=== PATIENT | male | born 1960 | race Caucasian/White ===

== ENCOUNTER → 2016-06-30 | Outpatient (REF) | payer OTHER ==
[2016-06-30 11:31] LABS: BASO % 0.9 % (0.0-1.0); EOS # 0.2 K/mm3 (0.0-0.50); EOS % 2.6 % (0.0-3.0); LARGE UNSTAINED CELL # 0.2 K/mm3 (0.0-0.4); LARGE UNSTAINED CELL % 3.1 % (0.0-4.0); LYMPH # 1.6 K/mm3 (1.5-4.5); LYMPH % 27.1 % (24.0-44.0); MEAN CORPUSCULAR HEMOGLOBIN 32.6 pg (27.0-33.0); MEAN CORPUSCULAR HGB CONC 34.6 g/dl (32.0-36.5); MEAN CORPUSCULAR VOLUME 94.2 fl (80.0-96.0); MONO # 0.5 K/mm3 (0.0-0.8); MONO % 8.7 % (0.0-5.0); NEUTROPHILS # 3.4 K/mm3 (1.8-7.7); NEUTROPHILS % 57.6 % (36.0-66.0); PLATELET COUNT, AUTOMATED 225 k/mm3 (150-450); RED CELL DISTRIBUTION WIDTH 13.1 % (11.5-14.5)
[2016-06-30 11:54] LABS: ALBUMIN 3.9 GM/DL (3.2-5.2); ALBUMIN/GLOBULIN RATIO 1.22 (1.00-1.93); ALKALINE PHOSPHATASE 59 U/L (45-117); ALT/SGPT 39 U/L (12-78); ANION GAP 7 MEQ/L (8-16); AST/SGOT 21 U/L (15-37); BILIRUBIN,TOTAL 0.4 MG/DL (0.2-1.0); BLOOD UREA NITROGEN 13 MG/DL (7-18); CALCIUM LEVEL 8.7 MG/DL (8.5-10.1); CARBON DIOXIDE LEVEL 27 MEQ/L (21-32); CHLORIDE LEVEL 105 MEQ/L (98-107); CREATININE FOR GFR 1.16 MG/DL (0.70-1.30); GLOMERULAR FILTRATION RATE > 60.0 (>56); GLUCOSE, FASTING 102 MG/DL (70-105); POTASSIUM SERUM 4.6 MEQ/L (3.5-5.1); SODIUM LEVEL 139 MEQ/L (136-145); TOTAL PROTEIN 7.1 GM/DL (6.4-8.2)
[2016-06-30 12:32] LABS: ERYTHROCYTE SEDIMENTATION RATE 7 mm/hr (0-20)
== END ==
LOC: M SFHCPLAZ 09:32
PROVIDERS: ATTEND Physician Assistant
DX: R06.02 Shortness of breath (principal); L29.3 Anogenital pruritus, unspecified; R20.9 Unspecified disturbances of skin sensation; R63.4 Abnormal weight loss; R39.89 Other symptoms and signs involving the genitourinary system

== ENCOUNTER → 2016-07-03 | Outpatient (REF) | payer OTHER | LOC: M SFHCPLAZ 10:36 | PROVIDERS: ATTEND Physician Assistant | DX: R39.89 Other symptoms and signs involving the genitourinary system (principal) ==

== ENCOUNTER → 2016-07-03 | Outpatient (CLI) | payer OTHER ==
--- NOTE | 2016-07-03 15:05 | REP ---
Chest two views HISTORY: Shortness of breath Comparison: 05/19/2010 The lungs are clear. The heart is normal in size. The pulmonary vasculature is normal in appearance. The bony structure is intact. IMPRESSION: No acute disease. Signed by Kj Young MD 07/03/2016 02:57 P
== END ==
LOC: M LRY 10:28
PROVIDERS: ATTEND Physician Assistant
DX: R06.02 Shortness of breath (principal)

== ENCOUNTER → 2016-07-06 | Outpatient (REF) | payer OTHER | LOC: M SFHCPLAZ 09:45 | PROVIDERS: ATTEND Family Medicine | DX: L29.9 Pruritus, unspecified (principal) ==

== ENCOUNTER → 2020-12-20 | Outpatient (CLI) | payer OTHER ==
--- NOTE | 2020-12-22 07:57 | REP ---
INDICATION: LT SHOULDER TEAR. COMPARISON: None. TECHNIQUE: Neutral, internal rotation, external rotation, axillary and Y-view FINDINGS: Osseous structures and joint spaces are relatively age-appropriate and within normal limits. No periarticular calcifications. No significant osteophytosis. Subacromial space is normal. Surrounding soft tissues are unremarkable. IMPRESSION: Age-appropriate left shoulder radiographs. <Electronically signed by Devonte Light > 12/22/20 [id number]
== END ==
LOC: M SOG 10:23
PROVIDERS: ATTEND Orthopaedic Surgery Sports Medicine
DX: S46.012A Strain of muscle(s) and tendon(s) of the rotator cuff of left shoulder, initial encounter (principal); X58.XXXA Exposure to other specified factors, initial encounter; Y92.9 Unspecified place or not applicable; Y99.9 Unspecified external cause status; Y93.9 Activity, unspecified

== ENCOUNTER → 2021-01-06 | Outpatient (CLI) | payer OTHER ==
--- NOTE | 2021-01-07 09:08 | REP ---
INDICATION: LT RCT W/ PAIN. COMPARISON: None. TECHNIQUE: Coronal oblique T1 and fat suppressed T2. Sagittal oblique fat suppressed T2. Axial [id number] and T2 FLASH. FINDINGS: There is moderate hypertrophic degenerative change seen involving the acromioclavicular joint. The acromion process is type 2. Patchy and linear T2 hyper signal is seen within the supraspinatus tendon. There is no evidence of supraspinatus musculotendinous retraction. The supraspinatus muscle does appear to be somewhat atrophied. Patchy T2 hyper signal is seen in the subscapularis tendon. The biceps tendon resides within the bicipital groove. There is fluid in the subcoracoid recess. There is no glenohumeral joint effusion. There is no definite coracohumeral or coracoacromial ligamentous thickening. There are some linear hyper signal changes seen in the anterior labrum. The marrow signal is within normal limits. IMPRESSION: 1. AC joint DJD. 2. Supraspinatus tendinitis/tendinosis. 3. Labral signal changes consistent with a labral tear. The extent of the tear could be confirmed with shoulder MRI arthrography if clinically relevant. 4. Fluid collections as described above. 5. Mild subscapularis tendinitis/tendinosis <Electronically signed by Maurisio Joseph > 01/07/21 [id number]
== END ==
LOC: M RAD 16:47
PROVIDERS: ATTEND Student in an Organized Health Care Education/Training Program
DX: S46.012A Strain of muscle(s) and tendon(s) of the rotator cuff of left shoulder, initial encounter (principal); X58.XXXA Exposure to other specified factors, initial encounter; Y92.9 Unspecified place or not applicable; Y93.9 Activity, unspecified; Y99.9 Unspecified external cause status; M19.012 Primary osteoarthritis, left shoulder; M77.8 Other enthesopathies, not elsewhere classified

== ENCOUNTER → 2022-08-26 | Outpatient (CLI) | payer OTHER | LOC: M RAD 14:42 | PROVIDERS: ATTEND Student in an Organized Health Care Education/Training Program | DX: R22.0 Localized swelling, mass and lump, head (principal) ==

== ENCOUNTER → 2023-01-25 | Outpatient (CLI) | payer OTHER ==
[~2023-01-25] MED LIST: LIDOCAINE 1% MDV 20ML VIAL As Ordered ONE
[2023-01-25 10:55] VITALS: TEMP 97.3
[2023-01-25 11:40] VITALS: BP 184/92; O2SAT 97
== END ==
LOC: M IRPRO 10:44
PROVIDERS: ATTEND Otolaryngology
DX: R22.1 Localized swelling, mass and lump, neck (principal)

== ENCOUNTER → 2023-04-30 | Outpatient (CLI) | payer OTHER ==
[2023-04-30 08:29] LABS: BASO # 0.1 10^3/uL (0.0-0.2); EOS # 0.1 10^3/uL (0.0-0.5); EOS % 2.1 % (0.0-3.0); HEMATOCRIT 47.9 % (42.0-52.0); HEMOGLOBIN 16.2 g/dl (13.5-17.5); LYMPH % 31.4 % (24.0-44.0); MEAN CORPUSCULAR HEMOGLOBIN 31.5 pg (27.0-33.0); MEAN CORPUSCULAR HGB CONC 33.8 g/dl (32.0-36.5); MONO # 0.6 10^3/uL (0.0-0.8); MONO % 10.3 % (2.0-8.0); NEUTROPHILS # 3.4 10^3/uL (1.5-8.5); NEUTROPHILS % 54.9 % (36.0-66.0); PLATELET COUNT, AUTOMATED 249 10^3/uL (150-450); RED BLOOD COUNT 5.15 10^6/uL (4.30-6.10); WHITE BLOOD COUNT 6.2 10^3/uL (4.0-10.0)
[2023-04-30 08:41] LABS: HEMOGLOBIN A1c 5.4 % (4.0-6.0)
[2023-04-30 08:50] LABS: PSA SCREENING 0.21 NG/ML (< 4.00)
[2023-04-30 08:52] LABS: ALBUMIN 3.8 G/DL (3.2-5.2); BILIRUBIN,TOTAL 0.5 MG/DL (0.3-1.2); CALCIUM LEVEL 9.4 MG/DL (8.3-10.6); CHOLESTEROL RISK RATIO 6.83 (<5); CREATININE FOR GFR 1.35 MG/DL (0.70-1.30); GLOMERULAR FILTRATION RATE 57.4 (>49); HDL CHOLESTEROL 40.8 MG/DL (>40); LDL CHOLESTEROL 193.4 MG/DL (<100); NON-HDL-C 238.2 MG/DL; POTASSIUM SERUM 4.9 MMOL/L (3.5-5.1); TOTAL PROTEIN 6.9 G/DL (5.7-8.2)
[2023-04-30 08:54] LABS: FREE T4 1.07 NG/DL (0.89-1.76); THYROID STIMULATING HORMONE 1.976 uIU/ML (0.55-4.78); TOTAL 25(OH) VITAMIN D 17.7 NG/ML (20.0-100.0)
== END ==
LOC: M LAB 07:56
PROVIDERS: ATTEND Physician Assistant
DX: Z00.00 Encounter for general adult medical examination without abnormal findings (principal); E66.09 Other obesity due to excess calories; Z68.37 Body mass index [BMI] 37.0-37.9, adult
CPT/HCPCS: 36415; 80053; 80061; 82306; 83036; 84439; 84443; 85025; G0103

== ENCOUNTER → 2023-05-07 | Outpatient (CLI) | payer OTHER | LOC: M CARPUL 13:57 | PROVIDERS: ATTEND Family Medicine | DX: R01.1 Cardiac murmur, unspecified (principal); R94.31 Abnormal electrocardiogram [ECG] [EKG] ==

== ENCOUNTER → 2023-05-25 | Outpatient (CLI) | payer OTHER ==
[2023-05-25 10:03] LABS: CALCIUM LEVEL 9.6 MG/DL (8.3-10.6); CREATININE FOR GFR 1.41 MG/DL (0.70-1.30); GLOMERULAR FILTRATION RATE 54.6 (>49)
== END ==
LOC: M LAB 09:08
PROVIDERS: ATTEND Physician Assistant
DX: E66.9 Obesity, unspecified (principal); R79.89 Other specified abnormal findings of blood chemistry

== ENCOUNTER → 2023-05-26 | Outpatient (CLI) | payer OTHER ==
[~2023-05-26] MED LIST changes: +ISOVUE-370 76% 100ML VIAL ONE; -LIDOCAINE 1% MDV 20ML VIAL As Ordered ONE
== END ==
LOC: M PLAIMG 09:17
PROVIDERS: ATTEND Physician Assistant
DX: I71.21 Aneurysm of the ascending aorta, without rupture (principal); K76.0 Fatty (change of) liver, not elsewhere classified
CPT/HCPCS: 71260; Q9967

== ENCOUNTER → 2023-06-28 | Outpatient (CLI) | payer OTHER | LOC: M RAD 07:54 | PROVIDERS: ATTEND Family Medicine | DX: E04.2 Nontoxic multinodular goiter (principal) ==

== ENCOUNTER → 2023-07-12 | Outpatient (REF) | payer OTHER ==
[2023-07-12 22:26] LABS: CALCIUM LEVEL 9.1 MG/DL (8.3-10.6); CREATININE FOR GFR 1.59 MG/DL (0.70-1.30); GLOMERULAR FILTRATION RATE 47.4 (>49); POTASSIUM SERUM 3.8 MMOL/L (3.5-5.1)
== END ==
LOC: M LAB REF 21:20
PROVIDERS: ATTEND Nurse Practitioner Family
DX: I35.0 Nonrheumatic aortic (valve) stenosis (principal)

== ENCOUNTER → 2023-09-07 | Outpatient (CLI) | payer OTHER ==
[~2023-09-07] MED LIST changes: +ATOR40TA75 PO; -ISOVUE-370 76% 100ML VIAL ONE; +LIDOCAINE 1% MDV 20ML VIAL As Ordered ONE; +METO25TA4 PO
[2023-09-07 10:22] VITALS: TEMP 97.8
[2023-09-07 11:13] VITALS: BP 161/94; O2SAT 96
== END ==
LOC: M IRPRO 09:52
PROVIDERS: ATTEND Otolaryngology
DX: E04.2 Nontoxic multinodular goiter (principal)

== ENCOUNTER 2023-12-06 09:48 | Inpatient (IN) | payer OTHER ==
[~2023-12-06] VITALS: Ht 188 cm; Wt 125.4 kg
[~2023-12-06 09:48] MED LIST changes: +AMIO200T37 PO; -LIDOCAINE 1% MDV 20ML VIAL As Ordered ONE; +METO1TAB87 PO
[2023-12-06] MEDS ORDERED: LR 1,000 ML IV SCH (10:25)
[2023-12-06] MEDS ORDERED: MIDAZOLAM INJ 2MG/2ML VIAL As Ordered ONE (10:35)
[2023-12-06] MEDS ORDERED: propofoL 200 MG/20 ML VIAL As Ordered ONE (10:36)
[2023-12-06] MEDS ORDERED: fentaNYL 100 MCG/2 ML INJECTION As Ordered ONE (10:37)
[2023-12-06] MEDS ORDERED: LIDOCAINE 2% 100MG/5ML SDV (FOR ANES.) As Ordered ONE (10:39)
[2023-12-06] MEDS ORDERED: ROCURONIUM BROMIDE 50MG/5ML VIAL As Ordered ONE (10:39)
[2023-12-06] MEDS: LIDOCAINE W/EPINEPHRINE 1% 20ML VIAL As Ordered ONE (10:50)
[2023-12-06] MEDS ORDERED: ONDANSETRON 4MG 2ML VIAL As Ordered ONE (11:41)
[2023-12-06] MEDS ORDERED: ACETAMINOPHEN 1000MG 100ML IV BAG As Ordered ONE (11:42)
[2023-12-06] MEDS ORDERED: SUGAMMADEX SODIUM 500 MG/5 ML VIAL (BRIDION) As Ordered ONE (11:52)
[2023-12-06] MEDS ORDERED: HYDROmorphone HCL 2MG/ML 1ML VIAL As Ordered ONE (12:13)
[2023-12-06] MEDS ORDERED: hydrALAZINE 20MG/ML 1ML VIAL As Ordered ONE (12:40)
[2023-12-06] MEDS ORDERED: LABETALOL 100MG/20ML VIAL As Ordered ONE (13:41)
[2023-12-06] MEDS: BACITRACIN OINTMENT 30GM TUBE As Ordered ONE (14:21)
[2023-12-06] MEDS ORDERED: fentaNYL 100 MCG/2 ML INJECTION IV PRN (14:35)
[2023-12-06] MEDS ORDERED: oxyCODONE 5MG TAB PO PRN (14:35)
[2023-12-06] MEDS ORDERED: HYDROMORPHONE HCL 0.5 MG/ 0.5 ML SYRINGE IV PRN (14:35)
[2023-12-06] MEDS: ONDANSETRON 4MG 2ML VIAL IV PRN (15:44)
[2023-12-06 16:15] VITALS: BP 136/77; TEMP 97; O2SAT 92
[2023-12-06 16:45] VITALS: BP 140/78; TEMP 97.2; O2SAT 93
[2023-12-06] MEDS ORDERED: HOME MED LIST COMPLETE! XX SCH (17:10)
[2023-12-06 17:15] VITALS: BP 138/72; TEMP 96.4; O2SAT 86
[2023-12-06 18:15] VITALS: BP 136/75; TEMP 96.8; O2SAT 98
[2023-12-06] MEDS ORDERED: ANEXSIA, NORCO 7.5MG/325MG TABLET(HYDROCODONE/APAP) PO PRN (19:55)
[2023-12-06 20:15] VITALS: BP 138/81; TEMP 97.1; O2SAT 97
[2023-12-06] MEDS: AMOXICILLIN 500 MG CAP PO SCH (21:16)
[2023-12-06] MEDS: LR 1,000 ML IV SCH ×2 (21:16→21:18)
[2023-12-06] MEDS: ATORVASTATIN 20 MG TAB PO SCH (21:16)
[2023-12-06] MEDS: BACITRACIN OINTMENT 30GM TUBE TOP SCH (21:18)
[2023-12-06 22:15] VITALS: BP 158/79; TEMP 97.5; O2SAT 98
[2023-12-07] VITALS (18 sets, daily range): BP systolic 119–145; BP diastolic 64–76; TEMP 96.7–98.1; O2SAT 85–95
[2023-12-07] MEDS: IPRATROPIUM 0.5MG/ALBUTEROL 2.5MG INH SOL UD 3ML (DUONEB) NEB ONE (05:36)
[2023-12-07 06:05] LABS: HEMOGLOBIN 15.2 g/dl (13.5-17.5); MEAN CORPUSCULAR HEMOGLOBIN 31.2 pg (27.0-33.0); MEAN CORPUSCULAR HGB CONC 33.8 g/dl (32.0-36.5); MEAN CORPUSCULAR VOLUME 92.4 fl (80.0-96.0); PLATELET COUNT, AUTOMATED 255 10^3/uL (150-450); RED BLOOD COUNT 4.87 10^6/uL (4.30-6.10); WHITE BLOOD COUNT 11.4 10^3/uL (4.0-10.0)
[2023-12-07 06:28] LABS: BLOOD UREA NITROGEN 18 MG/DL (9-23); CALCIUM LEVEL 9.5 MG/DL (8.3-10.6); CARBON DIOXIDE LEVEL 26 MMOL/L (20-31); CHLORIDE LEVEL 105 MMOL/L (98-107); CREATININE FOR GFR 1.15 MG/DL (0.70-1.30); GLOMERULAR FILTRATION RATE > 60.0 (>49); GLUCOSE, FASTING 119 MG/DL (74-106); POTASSIUM SERUM 4.4 MMOL/L (3.5-5.1); SODIUM LEVEL 136 MMOL/L (136-145)
[2023-12-07] MEDS: METOPROLOL SUCC *XL* 12.5MG PER 1/2 TAB (TopROL *XL*) PO SCH (08:14)
[2023-12-07] MEDS ORDERED: AMOX500C PO (10:59)
[2023-12-07] MEDS ORDERED: BACI50OI TOP (10:59)
[2023-12-07] MEDS ORDERED: DOXY-440 PO (11:00)
[2023-12-07] MEDS ORDERED: PROBCAP14 PO (11:00)
== END 2023-12-07 12:46 | disposition home or self-care (01) | DRG 139 ==
LOC: M SDC 09:48 → M MSPAV 16:16
PROVIDERS: ADMIT Family Medicine; ATTEND Student in an Organized Health Care Education/Training Program
PROC: 0CB Mouth and Throat, Excision (ICD-10-PCS; principal; 2023-12-06 11:10)
DX: D11.0 Benign neoplasm of parotid gland (principal); E78.5 Hyperlipidemia, unspecified; I35.0 Nonrheumatic aortic (valve) stenosis; I71.20 Thoracic aortic aneurysm, without rupture, unspecified; Z95.2 Presence of prosthetic heart valve; Z88.8 Allergy status to other drugs, medicaments and biological substances; Z79.899 Other long term (current) drug therapy; M51.35 Other intervertebral disc degeneration, thoracolumbar region; I10 Essential (primary) hypertension

== ENCOUNTER → 2024-10-24 | Outpatient (CLI) | payer OTHER ==
[~2024-10-24] MED LIST changes: +AMOX500C PO; +BACI50OI TOP; +DOXY-440 PO; +PROBCAP14 PO
== END ==
LOC: M RAD 07:17
PROVIDERS: ATTEND Family Medicine
DX: E04.2 Nontoxic multinodular goiter (principal)

== ENCOUNTER 2024-12-27 07:03 | Day surgery (SDC) | payer OTHER ==
[~2024-12-27] VITALS: Ht 188 cm; Wt 127.0 kg
[~2024-12-27 07:03] MED LIST changes: +LIDOCAINE 2% 100 MG/5 ML SDV (FOR ANES.) As Ordered ONE
[2024-12-27 08:54] VITALS: TEMP 97.7
[2024-12-27 09:10] VITALS: BP 172/85; O2SAT 98
== END 2024-12-27 09:25 | disposition home or self-care (01) ==
LOC: M OPP 07:03
PROVIDERS: ATTEND Surgery
DX: Z12.11 Encounter for screening for malignant neoplasm of colon (principal); D12.6 Benign neoplasm of colon, unspecified; K57.30 Diverticulosis of large intestine without perforation or abscess without bleeding; Z88.5 Allergy status to narcotic agent; Z88.8 Allergy status to other drugs, medicaments and biological substances; Z79.899 Other long term (current) drug therapy; F17.290 Nicotine dependence, other tobacco product, uncomplicated
CPT/HCPCS: 45380; 45385; 88305; J3010